=== PATIENT | female | born 1960 | race Two or more races ===

== ENCOUNTER 2024-04-20 14:56 | Emergency (ER) | payer OTHER ==
[~2024-04-20] VITALS: Ht 157.5 cm; Wt 63.5 kg
[2024-04-20] MEDS ORDERED: NEOMYCIN/POLYMYXIN B/HYDROCORT 20 DR/ML BOTTLE OT STA (17:06)
[2024-04-20] MEDS ORDERED: KETOROLAC TROMETHAMINE 30 MG VIAL IM STA (17:06)
== END 2024-04-20 17:46 | disposition home or self-care (01) ==
LOC: ER 14:56
DX: H60.8X1 Other otitis externa, right ear (principal); F43.9 Reaction to severe stress, unspecified